=== PATIENT | male | born 2005 | race Hispanic/Latino ===

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

== ENCOUNTER 2024-03-28 10:19 | Emergency (ER) | payer BC ==
[2024-03-28] MEDS ORDERED: Ketorolac Tromethamine 30 MG (1 mL) VIAL ONE (10:53)
[2024-03-28 11:14] LABS: Bilirubin Neg (Negative); Blood, Urine Negative (Negative); Clarity Clear (Clear); Glucose, Urine (Dipstick) Normal (Negative); Ketone, Urine Negative (Negative); Leukocyte Negative (Negative); Nitrite Negative (Negative); Protein, Urine (Dipstick) Negative (Neg-Trace); Specific Gravity, Urine 1.025 (1.005-1.030); Urobilinogen Normal mg/dL (Less than 2)
[2024-03-28 11:41] LABS: Bacteria/HPF Rare-Few HPF (None Seen); CAUTI Indications for Culture Dysuria,urgency,freq; Mucous/LPF 1+ LPF (<2+); RBC/HPF 0-3 HPF (0-3); Squamous Epithelial 0-3 HPF (0-3); WBC/HPF 0-3 HPF (0-3)
[2024-03-28 11:42] LABS: Urine Culture Reflex No No
[2024-03-28] MEDS ORDERED: cefTRIAXone (ROCEPHIN) 500 MG VIAL ONE (12:58)
[2024-03-29 01:49] LABS: Chlam.trachomatis by PCR,Urine Not Detected (NotDetected); GC N.gonorrhoeae PCR,UrineVOID Not Detected (NotDetected)
== END 2024-03-28 13:10 | disposition home or self-care (01) ==
LOC: CSHERS 10:19
DX: N45.2 Orchitis (principal); F17.210 Nicotine dependence, cigarettes, uncomplicated
CPT/HCPCS: 76870; 81001; 87491; 87591; 93976; 96372; J0696; J1885